=== PATIENT | male | born 1975 | race Caucasian/White ===

== ENCOUNTER → 2022-01-11 | Outpatient (CLI) | payer BC ==
--- NOTE | 2022-01-11 16:02 | CT ---
EXAMINATION TYPE: CT chest w con DATE OF EXAM: 01/11/2022 COMPARISON: None HISTORY: 46-year-old male R63.4, abnormal weight loss TECHNIQUE: Contiguous axial scanning of the chest after the administration of 70cc mL of Isovue 300. Coronal/sagittal reconstructions performed. CT DLP: 252.7mGycm. Automatic exposure control utilized for a dose reduction. FINDINGS: Heart is normal size without pericardial effusion. Aorta normal caliber with conventional branching anatomy. No thoracic lymphadenopathy by CT size criteria. Minimal emphysematous change in the upper lungs. No consolidation or pleural effusion. Visualized upper abdomen shows no gross abnormality. Mild degenerative disc disease mid to lower thoracic spine. Suspect a couple fatty matrix hemangiomas suggested within the T11 and T12 vertebral bodies. No osseous destructive process. IMPRESSION: No acute pulmonary process. Minimal emphysematous change suggested in the upper lungs.
== END | disposition home or self-care (01) ==
LOC: RADCTMAIN 12:41
PROVIDERS: ATTEND Family Medicine
DX: J43.9 Emphysema, unspecified (principal); R63.4 Abnormal weight loss
CPT/HCPCS: 71260; Q9967